=== PATIENT | male | born 1975 | race Caucasian/White ===

== ENCOUNTER 2021-12-03 22:36 | Emergency (ER) | payer BC ==
[2021-12-04] MEDS ORDERED: Levofloxacin 500 MG Tab PO ONE (01:16)
[2021-12-05 13:07] LABS: C.TRACHOMATIS BY TMA Negative (Negative); N.GONORRHOEAE BY TMA Negative (Negative)
== END 2021-12-04 01:30 | disposition home or self-care (01) ==
LOC: MW.ED 22:36
DX: N45.2 Orchitis (principal)
CPT/HCPCS: 76870; 81001; 87086; 87491; 87591; 93976; 99284; A9270